=== PATIENT | female | born 1995 | race Caucasian/White ===

== ENCOUNTER 2018-05-27 23:24 | Emergency (ER) | payer OTHER ==
[~2018-05-27] VITALS: Ht 160 cm; Wt 87.0 kg
[~2018-05-27 23:24] MED LIST: AUGMENTIN875 MG PO; BACTRIM,SEPT1 TABLET PO; BIRTH CONTROL; CORTISPORIN EAR10 ML BOTH EARS; Feosol PO; IBUPROFEN800 MG PO; MECLIZINE HCL25 MG PO; Motrin PO; NAPROSYN500 MG PO; NATALCARE RX1 TABLET PO; PRENATAL TABLE1 EAC3 PO; Percocet 5/325,Endoc PO; ZOFRAN ODT4 MG PO; ZOFRAN4 MG PO
[2018-05-27 23:56] LABS: APPEARANCE CLEAR ((CLEAR)); BILIRUBIN NEGATIVE; BLOOD NEGATIVE; COLOR STRAW ((YELLOW)); GLUCOSE (STRIP) NEGATIVE; KETONES 20; LEUKOCYTES NEGATIVE; NITRITE NEGATIVE; PROTEIN (STRIP) NEGATIVE; SPECIFIC GRAVITY 1.011 (1.000-1.030); UCUL ADDED? NO; UROBILINOGEN 0.2 MG/DL (0.2-1.0)
[2018-05-28 00:06] LABS: HEMATOCRIT 38.8 % (36.0-46.0); HEMOGLOBIN 13.5 G/DL (11.9-15.5); MCH 29.8 PG (29.0-34.0); MCHC 34.8 G/DL (30.0-36.0); MCV 85.7 FL (83-99); PLATELET COUNT 240 K/uL (156-360); RBC DIS.WIDTH-CV 12.5 % (11.8-14.6); RED BLOOD COUNT 4.53 M/uL (3.80-5.20); WHITE BLOOD COUNT 8.1 K/uL (4.1-10.2)
[2018-05-28 03:54] VITALS: BP 105/65
== END 2018-05-28 03:55 | disposition home or self-care (01) ==
LOC: EME 23:24
DX: O99.89 Other specified diseases and conditions complicating pregnancy, childbirth and the puerperium (principal); R10.9 Unspecified abdominal pain; Z3A.01 Less than 8 weeks gestation of pregnancy; Z88.1 Allergy status to other antibiotic agents; Z88.8 Allergy status to other drugs, medicaments and biological substances
CPT/HCPCS: 76801; 81003; 84702; 85027; 86900; 86901; 99281; 99284